=== PATIENT | male | born 2005 | race Caucasian/White ===

== ENCOUNTER 2023-03-08 15:33 | Emergency (ER) | payer MEDICAID ==
[~2023-03-08] VITALS: Ht 177.8 cm; Wt 77.3 kg
[2023-03-08 15:58] VITALS: BP 120/49; PULSE 48; RESP 18; TEMP 98.7; O2SAT 98
[2023-03-08] MEDS ORDERED: DOXY150T3 PO (16:12)
== END 2023-03-08 17:25 | disposition home or self-care (01) ==
LOC: ER 15:34
DX: B54 Unspecified malaria (principal)
CPT/HCPCS: 99283